=== PATIENT | male | born 1965 | race Caucasian/White ===

== ENCOUNTER 2017-07-20 18:11 | Inpatient (IN) | payer MEDICAID, OTHER ==
[~2017-07-20] VITALS: Ht 170.2 cm; Wt 81.2 kg
[~2017-07-20 18:11] MED LIST: AMLO5TAB4 PO; DIPH25CA49 PO; HYDR-552 PO; Pantoprazole Sodium PO; Valsartan PO
[2017-07-20] MEDS ORDERED: IBUPROFEN 600 MG TABLET PO ONE ×2 (19:00→19:17)
[2017-07-20] MEDS ORDERED: VANCOMYCIN 1 GM in IV D5W 250 ML IV ONE (19:00)
[2017-07-20] MEDS ORDERED: IV NS 0.9% 1,000 ML BAG IV ONE (19:00)
[2017-07-20] MEDS ORDERED: PIPERACILLIN /TAZOBACTAM 3.375 G in IV D5W 50 ML IV ONE (19:00)
--- NOTE | 2017-07-20 19:01 | NUR ---
CALLED PHARMACY FOR MEDS
[2017-07-20] MEDS ORDERED: LIDOCAINE HCL/PF 1% 30 ML SDV ONE (19:02)
[2017-07-20 19:10] LABS: BASOPHILS # (AUTO) 0.2 /CMM (0.0-0.2); BASOPHILS % (AUTO) 2.8 % (0.0-2.0); EOSINOPHILS # (AUTO) 0.2 /CMM (0.0-0.7); EOSINOPHILS % (AUTO) 2.6 % (0.0-6.0); HEMATOCRIT 43 % (39-51); HEMOGLOBIN 14.8 g/dL (13.5-17.5); LYMPHOCYTES # (AUTO) 1.7 /CMM (0.8-4.8); LYMPHOCYTES % (AUTO) 19.1 % (20.0-44.0); MEAN CORPUSCULAR HEMOGLOBIN 31 PG (26.0-33.0); MEAN CORPUSCULAR HGB CONC 35 g/dl (31.0-36.0); MEAN CORPUSCULAR VOLUME 90 fL (80-96); MONOCYTES # (AUTO) 1.1 /CMM (0.1-1.30); MONOCYTES % (AUTO) 12.8 % (2.0-12.0); NEUTROPHILS # (AUTO) 5.5 /CMM (1.8-8.9); NEUTROPHILS % (AUTO) 62.7 % (43.0-81.0); PLATELET COUNT (AUTO) 263 /CMM (150-450); RDW COEFFICIENT OF VARIATION 12.8 (11.5-15.0); RED BLOOD CELL COUNT(AUTO) 4.74 MIL/uL (4.5-6.0); WHITE BLOOD COUNT (AUTO) 8.7 K/uL (4.3-11.0)
--- NOTE | 2017-07-20 19:15 | NUR ---
PA bedside for InD of right knee at this time. pt a/o x 4, breathing unlabored, NAD noted
[2017-07-20 19:28] LABS: PROTHROMBIN TIME 10.4 SECS (9.5-12.7)
[2017-07-20] MEDS ORDERED: ONDANSETRON HCL/PF 4 MG/2 ML VIAL ONE (19:29)
[2017-07-20] MEDS ORDERED: ONDANSETRON HCL/PF 4 MG/2 ML VIAL IV ONE (19:30)
[2017-07-20 19:38] LABS: CREATININE 0.9 mg/dL (0.6-1.3)
[2017-07-20 19:57] LABS: POTASSIUM 3.2 mmol/L (3.5-5.1)
[2017-07-20] MEDS ORDERED: AMLO1CAP10 PO (21:12)
[2017-07-20 21:40] VITALS: BP 137/70
--- NOTE | 2017-07-20 21:50 | NUR ---
RN NOTES ADMITTED A 52 YEARS OLD MALE FROM ER TRANSFER VIA W/C AMBULATE WITH ASSIST DUE TO "SPIDER BITE" PER PATIENT. AOX 3 ABLE TO MAKE KNOWN NEEDS. DIAGNOSED WITH CELLULITIS WITH HISTORY OF HEP C AND NEW HYPERTENSION NO KNOWN ALLERGIES. IV SITE ON RAC G 18 INTACT AND PATENT. BODY ASSESSMENT DONE SKIN ISSUE SHOWS PHOTO TAKEN. VS TAKEN TEMP 98.6 RESP 20 PULSE 92 BP 137/70 SATING 97% IN RA. KEPT PT CLEAN AND DRY. CALL LIGHT KEPT WITHIN EASY REACH INSTRUCTION PROVIDED. WILL CONTINUE TO MONITOR.
[2017-07-20] MEDS ORDERED: ONDANSETRON HCL/PF 4 MG/2 ML VIAL IVP PRN (22:00)
[2017-07-20] MEDS ORDERED: ACETAMINOPHEN 325 MG TABLET PO PRN (22:00)
[2017-07-20] MEDS ORDERED: ENOXAPARIN SODIUM 30 MG/0.3 ML DISP.SYRIN SQ SCH (22:00)
[2017-07-20] MEDS ORDERED: ENOXAPARIN SODIUM 30 MG/0.3 ML DISP.SYRIN ONE (22:51)
[2017-07-21 04:00] VITALS: BP 148/92
[2017-07-21] MEDS ORDERED: PIPERACILLIN /TAZOBACTAM 3.375 G VIAL IV ONE (04:43)
[2017-07-21] MEDS ORDERED: PIPERACILLIN /TAZOBACTAM 3.375 G in IV D5W 100 ML IV SCH ×3 (05:00→12:00)
[2017-07-21 05:10] LABS: BASOPHILS # (AUTO) 0.1 /CMM (0.0-0.2); BASOPHILS % (AUTO) 0.8 % (0.0-2.0); EOSINOPHILS # (AUTO) 0.3 /CMM (0.0-0.7); EOSINOPHILS % (AUTO) 3.1 % (0.0-6.0); HEMATOCRIT 45 % (39-51); LYMPHOCYTES # (AUTO) 2.6 /CMM (0.8-4.8); LYMPHOCYTES % (AUTO) 26.5 % (20.0-44.0); MEAN CORPUSCULAR HEMOGLOBIN 31 PG (26.0-33.0); MEAN CORPUSCULAR HGB CONC 34 g/dl (31.0-36.0); MEAN CORPUSCULAR VOLUME 91 fL (80-96); MONOCYTES # (AUTO) 1.5 /CMM (0.1-1.30); MONOCYTES % (AUTO) 14.9 % (2.0-12.0); NEUTROPHILS # (AUTO) 5.4 /CMM (1.8-8.9); NEUTROPHILS % (AUTO) 54.7 % (43.0-81.0); PLATELET COUNT (AUTO) 242 /CMM (150-450); RDW COEFFICIENT OF VARIATION 14.1 (11.5-15.0); RED BLOOD CELL COUNT(AUTO) 4.89 MIL/uL (4.5-6.0); WHITE BLOOD COUNT (AUTO) 9.9 K/uL (4.3-11.0)
[2017-07-21 05:41] LABS: ALBUMIN 2.8 g/dL (3.4-5.0); BILIRUBIN,TOTAL 0.3 mg/dL (0.2-1.0); CALCIUM, SERUM 8.7 mg/dL (8.5-10.1); CREATININE 0.8 mg/dL (0.6-1.3); MAGNESIUM 1.9 mg/dL (1.8-2.4); PHOSPHORUS 3.2 mg/dL (2.5-4.9); POTASSIUM 3.6 mmol/L (3.5-5.1); TOTAL PROTEIN, SERUM 7.2 g/dL (6.4-8.2)
--- NOTE | 2017-07-21 06:16 | NUR ---
RN NOTES PT ASLEEP FOR ABOUT 4 HOURS DENIES PAIN WHEN ON BED COMPLAIN OF PAIN WHEN STANDING AND AMBULATING. NO ACUTE RESP DISTRESS. AFEBRILE. VS STABLE NO HYPERTENSION SHOWS. IV ATB GIVEN ORDERED TOLERATED WELL WITHOUT ASE NOTED. ALL NEEDS ATTENDED. KEPT CLEAN AND DRY. WILL ENDORSED CONTINUITY OF CARE TO AM NURSE.
--- NOTE | 2017-07-21 06:43 | NUR ---
RN NOTES MOVE PT FROM ROOM 114-1 TO 118-1
[2017-07-21] MEDS ORDERED: AMLO5TAB2 PO (07:27)
[2017-07-21] MEDS ORDERED: IBUP-1955 PO (07:27)
[2017-07-21] MEDS ORDERED: DOXY100C2 PO (07:34)
[2017-07-21 08:00] VITALS: BP 143/99
--- NOTE | 2017-07-21 08:00 | NUR ---
SWITCHMAN NOTE PATIENT IN BED , ALERT , ORIENTED ALL NEEDS ATTENDED ,NOT IN ACUTE DISTRESS . RT AC HL INTACT , NO S\S INFECTION NOTED , BED IN LOWEST AND LOCKED POSITION , CALL LIGHT WITHIN REACH , PLAN OF CARE DISCUSSED WITH PATIENT, NO SOB NO C\O PAIN AT THIS TIME, WILL CONT TO MONITOR CLOSELY
[2017-07-21] MEDS ORDERED: ENOXAPARIN SODIUM 30 MG/0.3 ML DISP.SYRIN SQ SCH ×2 (08:30→21:00)
[2017-07-21] MEDS: PANTOPRAZOLE 40 MG TABLET.DR PO SCH (09:04)
[2017-07-21] MEDS: VANCOMYCIN 1 GM in IV D5W 250 ML IV SCH ×2 (09:14→16:13)
[2017-07-21 10:00] VITALS: BP 143/99
--- NOTE | 2017-07-21 10:26 | NUR ---
ORTHO ASSISTANT NOTE SEEN BY PT, NEEDS MOD ASSISTANTS TO AMBULATE, ABLE TO MAKE 6 FEET ,WILL CONT TO MONITOR CLOSELY, UA COLLECTED ORDERED
[2017-07-21 11:16] LABS: APPEARANCE,URINE CLEAR (CLEAR); BILIRUBIN,URINE 2+ (NEGATIVE); BLOOD, URINE NEGATIVE Ery/uL (NEGATIVE); COLOR,URINE YELLOW (YELLOW); KETONES,URINE TRACE (NEGATIVE); LEUKOCYTE ESTERASE ,URINE NEGATIVE (NEGATIVE); NITRITE, URINE NEGATIVE (NEGATIVE); PH,URINE 6.5 (5.0-8.0); PROTEIN,URINE NEGATIVE (NEGATIVE); UGLUCOSE 2+ mg/dL (NEGATIVE); UROBILINOGEN,URINE 0.2 EU/dL (0.2)
--- NOTE | 2017-07-21 11:27 | NUR ---
MS RN NOTE SPOKE WITH ALISE HAN TO CHANGE DIET TO REGULAR , SEEN PATIENT AT BEDSIDE AND EXAMINED WOUND
[2017-07-21 11:43] LABS: CLINITEST,URINE 3/4%
[2017-07-21 11:44] LABS: BACTERIA,URINE None seen /HPF (None Seen); RBC,URINE NONE SEEN /HPF (0-2); SQUAMOUS EPITHELIAL CELL,UR Few /HPF (None Seen); WBC,URINE 0-2 /HPF (0-3)
[2017-07-21] MEDS: PIPERACILLIN /TAZOBACTAM 3.375 G in IV D5W 50 ML IV SCH ×3 (12:08→23:52)
--- NOTE | 2017-07-21 14:45 | NUR ---
MS RN AWAITING TELEPHONE CALL FROM PATIENT PSYCH THERAPIST TO TELL US WHAT DOSE OF TRAZODONE PATIENT TAKING AT HOME WILL F\U
[2017-07-21] MEDS ORDERED: FEE PK DOSING 1 MIN EA MC ONE (15:51)
--- NOTE | 2017-07-21 15:58 | NUR ---
MS RN NOTE DR BLANCO AT BEDSIDE ,SEEN WOUND ON RT THIGH WITH NEW ORDER GIVEN FOR PROCEDURE
[2017-07-21 16:00] VITALS: BP 138/95
--- NOTE | 2017-07-21 16:25 | NUR ---
MS RN NOTE PER ANTHONY BARRY RN CAFE ASSISTANT OK TO ORDER NORCO Q4 HOUR PRN PATIENT C\O SEVERE PAIN AFTER BEEN CHECK BY SURGEON , WILL F\U
[2017-07-21] MEDS ORDERED: HYDROCODONE/APAP 5/325MG 1 EACH TABLET PO PRN (16:30)
[2017-07-21] MEDS: busPIRone 5 MG TABLET PO SCH (17:22)
--- NOTE | 2017-07-21 17:30 | NUR ---
MS RN NOTE \ FOR POSSIBLE PROCEDURE WITH DR BLANCO RT THIGH DRAIN WOUND
[2017-07-21 20:00] VITALS: BP 154/96
[2017-07-21] MEDS ORDERED: TRAZODONE 50 MG TABLET PO SCH (21:00)
[2017-07-21] MEDS ORDERED: ENOXAPARIN SODIUM 40 MG/0.4 ML DISP.SYRIN SQ SCH (21:00)
[2017-07-21] MEDS: TRAZODONE 50 MG TABLET PO SCH (21:10)
[2017-07-22] MEDS: VANCOMYCIN 1 GM in IV D5W 250 ML IV SCH ×3 (01:03→17:25)
[2017-07-22 04:00] VITALS: BP 137/95
[2017-07-22] MEDS: PIPERACILLIN /TAZOBACTAM 3.375 G in IV D5W 50 ML IV SCH ×3 (06:00→18:00)
--- NOTE | 2017-07-22 07:20 | NUR ---
RN INITIAL NOTES: REC'D PT ASLEEP ON BED, NOT IN ANY DISTRESS, EASILY AROUSABLE, A/O X4. ON ROOM AIR, NO SOB. HAS R AC G18, SL, FLUSHED, PATENT & INTACT W/ NO S/SX OF INFECTION/ INFILTRATION NOTED. FOR DEBRIDEMENT OF R THIGH, CONSENT SECURED. PROVIDED COMFORT & SAFETY MEASURES. BED KEPT LOW & IN LOCKED POS. CALL LIGHT PLACED W/IN REACH. WILL CONTINUE TO MONITOR.
[2017-07-22 07:25] LABS: CALCIUM, SERUM 8.3 mg/dL (8.5-10.1); CREATININE 0.9 mg/dL (0.6-1.3); POTASSIUM 4.1 mmol/L (3.5-5.1)
[2017-07-22 08:00] VITALS: BP 146/84
[2017-07-22] MEDS ORDERED: LIDOCAINE 1%-EPI 1:100,000 20 ML VIAL TP ONE (08:00)
[2017-07-22] MEDS ORDERED: LIDOCAINE 2%-EPI 1:200,000 20 ML VIAL IJ ONE (09:00)
[2017-07-22] MEDS ORDERED: LIDOCAINE 1%-EPI 1:200,000 SDV 10 ML VIAL IJ ONE (09:00)
--- NOTE | 2017-07-22 10:00 | NUR ---
RN NOTES: PT SEEN & EXAMINED BY BARRY TOLEDO, NO DEBRIDEMENT NEEDED. ORDERED TO CONTINUE SAME WOUND CARE.
[2017-07-22] MEDS: TRAZODONE 50 MG TABLET PO SCH (11:28)
[2017-07-22] MEDS: PANTOPRAZOLE 40 MG TABLET.DR PO SCH (11:28)
[2017-07-22] MEDS: busPIRone 5 MG TABLET PO SCH ×2 (11:29→17:28)
[2017-07-22] MEDS: NEOMY SULF/BACITRAC ZN/POLY 15 GM TUBE TP SCH ×2 (11:31→17:26)
[2017-07-22] MEDS ORDERED: DOXY100T2 PO (13:24)
[2017-07-22 16:00] VITALS: BP_SYST 131; BP_SYST 157; BP_DIAS 80; BP_DIAS 95
[2017-07-22] MEDS ORDERED: LACTOBACILLUS RHAMNOSUS GG 1 EACH CAP.SPRINK PO SCH (17:00)
--- NOTE | 2017-07-22 19:00 | NUR ---
BUSINESS ANALYST NOTES: PT DC'D TO HOME, SELF CARE ORDERED. DC INSTRUCTION AND DOCUMENTS GIVEN TO PT. WOUND PHOTOS TAKEN AND PLACED IN CHART. WOUND CARE DONE AND WOUND INSTRUCTION GIVEN PRIOR TO DC. IV ACCESS REMOVED, APPLIED PRESSURE DRESSING, NO INFECTION NOTED. ALL BELONGINGS SENT W/ PT. DME SPC PROVIDED TO PT FOR PT'S SAFETY PER PHYSICAL THERAPIST ADVICE. JUSTINA GONZALES WAS ABLE TO SPEAK W/ PT PRIOR TO DC. PT LEFT IN STABLE CONDITION, AMBULATORY W/ SPC. NO CONCERNS IDENTIFIED AT THIS TIME.
[2017-07-23 21:08] LABS: *HIV-1 RNA BY PCR <20 copies/mL (.)
[2017-07-25 12:15] LABS: HEPATITIS Be AB Negative (Negative)
== END 2017-07-22 19:46 | disposition home or self-care (01) | DRG 710 ==
LOC: ER 18:12 → MEDSG1 20:50
PROVIDERS: ADMIT Internal Medicine; ATTEND Internal Medicine
PROC: 0KBQ0ZZ Excision of Right Upper Leg Muscle, Open Approach (ICD-10-PCS; principal; 2017-07-22)
DX: A41.9 Sepsis, unspecified organism (principal); E87.8 Other disorders of electrolyte and fluid balance, not elsewhere classified; L02.415 Cutaneous abscess of right lower limb; L03.312 Cellulitis of back [any part except buttock and flank]; I10 Essential (primary) hypertension; L03.115 Cellulitis of right lower limb; B19.20 Unspecified viral hepatitis C without hepatic coma; F17.200 Nicotine dependence, unspecified, uncomplicated; Z79.899 Other long term (current) drug therapy; T63.301A Toxic effect of unspecified spider venom, accidental (unintentional), initial encounter; Z91.19 Patient's noncompliance with other medical treatment and regimen; Z86.14 Personal history of Methicillin resistant Staphylococcus aureus infection; Z83.3 Family history of diabetes mellitus; R07.89 Other chest pain; F19.10 Other psychoactive substance abuse, uncomplicated
CPT/HCPCS: 36415; 71010-TC; 80048-TC; 80053-TC; 80202-TC; 80305; 81000-TC; 83735-TC; 84100-TC; 84484-TC; 85025-TC; 85730-TC; 86704; 86705; 86706; 86707; 87040-TC; 87070-TC; 87081-TC; 87086-TC; 87350; 87491; 87536; 87591; 93307-TC; 97116-TC; 97530-TC; A4606; A6402; A6403; A6407; J1650; J2405; J2543; J3370; J3490; J7030; J7050; J7060; Z7610